=== PATIENT | female | born 1970 | race Caucasian/White ===

== ENCOUNTER → 2019-02-18 | Outpatient (CLI) | payer OTHER ==
[~2019-02-18] MED LIST: DIATRIZOATE MEGL/DIATRIZOA SOD 30 ML BTL PO ONE; IOPAMIDOL 370 MG/ML 200 ML INFUS..BTL INJ ONE; SODIUM CHLORIDE 0.9% 50ML 50 ML ONE
--- NOTE | 2019-02-18 13:34 | Diagnostic Imaging Report ---
EXAM: CT Abdomen and Pelvis WITH intravenous contrast INDICATION: Abdominal pain COMPARISON: None. TECHNIQUE: Abdomen and pelvis were scanned utilizing a multidetector helical scanner from the lung base to the pubic symphysis after administration of IV contrast. Coronal and sagittal reformations were obtained. Routine protocol was performed. Scan was performed during portal venous phase. IV CONTRAST: 100mL of Isovue 370 ORAL CONTRAST: Gastrografin RADIATION DOSE: Total DLP: 784.9 mGy*cm Dose modulation, iterative reconstruction, and/or weight based adjustment of the mA/kV was utilized to reduce the radiation dose to as low as reasonably achievable. FINDINGS: LOWER THORAX: Normal. HEPATOBILIARY: No focal hepatic lesions. No biliary ductal dilatation. The gallbladder appears unremarkable. SPLEEN: No splenomegaly. PANCREAS: No focal masses or ductal dilatation. ADRENALS: No adrenal nodules. KIDNEYS/URETERS: No hydronephrosis, stones, or solid mass lesions. PELVIC ORGANS/BLADDER: Unremarkable. PERITONEUM / RETROPERITONEUM: No free air or fluid. LYMPH NODES: No lymphadenopathy. VESSELS: Unremarkable. GI TRACT: Diverticulosis with an area of focal wall thickening and pericolonic fat stranding associated with a diverticulum in the mid descending colon. No associated extraluminal air or focal fluid collection. Otherwise, no abnormal bowel wall thickening or bowel obstruction. Normal appendix. BONES AND SOFT TISSUES: No acute osseous injury. No suspicious lytic or blastic lesions. IMPRESSION: Acute uncomplicated diverticulitis of the mid descending colon. No associated diverticular abscess or free air. Signed by: Johnny Ronquillo MD on 02/18/2019 1:31 PM
== END ==
LOC: CT 11:49
PROVIDERS: ATTEND Internal Medicine Gastroenterology
DX: K56.601 Complete intestinal obstruction, unspecified as to cause (principal); K92.2 Gastrointestinal hemorrhage, unspecified; R10.84 Generalized abdominal pain; K42.9 Umbilical hernia without obstruction or gangrene; Z12.11 Encounter for screening for malignant neoplasm of colon; A04.9 Bacterial intestinal infection, unspecified
CPT/HCPCS: 74177; Q9967